=== PATIENT | female | born 1995 | race African-American/Black ===

== ENCOUNTER 2018-03-29 20:36 | Emergency (ER) | payer MEDICAID ==
[~2018-03-29] VITALS: Ht 152.4 cm; Wt 52.0 kg
[2018-03-29 21:03] VITALS: BP 101/51
[2018-03-29] MEDS ORDERED: LORAZEPAM 0.5MG TABLET PO ONE (22:45)
== END 2018-03-30 03:22 | disposition left against medical advice (07) ==
LOC: ER 21:57
DX: F41.9 Anxiety disorder, unspecified (principal); F32.9 Major depressive disorder, single episode, unspecified; F17.200 Nicotine dependence, unspecified, uncomplicated
CPT/HCPCS: 81025; 99284

== ENCOUNTER 2018-06-11 19:21 | Emergency (ER) | payer MEDICAID ==
[~2018-06-11] VITALS: Ht 152.4 cm; Wt 57.0 kg
[2018-06-11 20:54] VITALS: BP 114/71
== END 2018-06-11 23:15 | disposition left against medical advice (07) ==
LOC: ER 19:21
DX: Z53.21 Procedure and treatment not carried out due to patient leaving prior to being seen by health care provider (principal)

== ENCOUNTER 2018-06-21 14:23 | Emergency (ER) | payer MEDICAID ==
[~2018-06-21] VITALS: Ht 152.4 cm; Wt 58.0 kg
[2018-06-21 14:38] VITALS: BP 111/64
== END 2018-06-21 15:48 | disposition left against medical advice (07) ==
LOC: ER 14:23
DX: Z53.21 Procedure and treatment not carried out due to patient leaving prior to being seen by health care provider (principal); F17.200 Nicotine dependence, unspecified, uncomplicated
CPT/HCPCS: 81025

== ENCOUNTER 2018-07-09 11:23 | Emergency (ER) | payer MEDICAID | END 2018-07-09 13:06 | disposition left against medical advice (07) | LOC: ER 11:23 | DX: Z53.21 Procedure and treatment not carried out due to patient leaving prior to being seen by health care provider (principal) ==

== ENCOUNTER 2018-07-13 13:53 | Emergency (ER) | payer MEDICAID ==
[~2018-07-13] VITALS: Ht 152.4 cm; Wt 55.0 kg
[2018-07-13 15:08] LABS: CLARITY URINE CLEAR (CLEAR); COLOR URINE YELLOW (YELLOW); KETONES URINE NEGATIVE (NEGATIVE); LEUKOCYTE ESTERASE URINE NEGATIVE (NEGATIVE); NITRITE URINE NEGATIVE (NEGATIVE); OCCULT BLOOD URINE NEGATIVE (NEGATIVE); PH URINE 7.5 (4.5-8.0); PROTEIN URINE NEGATIVE (NEGATIVE); SPECIFIC GRAVITY URINE 1.012 (1.005-1.030); UROBILINOGEN URINE 0.2 E.U./dL (0.2-1.0)
[2018-07-13 16:11] LABS: CHLORIDE 105 mEq/L (98-107)
[2018-07-13] MEDS ORDERED: HYDROXYZINE 10 MG TABLET PO STA (16:22)
[2018-07-13 17:21] LABS: BASOPHILS % 0.4 % (0.0-2.0); HEMATOCRIT. 40.8 % (36.0-48.0); HEMOGLOBIN. 13.8 g/dL (12.0-16.0); LYMPHOCYTES % 29.7 % (20.0-50.0); MEAN CORPUSCULAR HEMOGLOBIN 34.1 pg (28.0-32.0); MEAN CORPUSCULAR VOLUME 100.8 fL (81.0-99.0); MEAN PLATELET VOLUME 7.3 fl (7.4-10.4); MONOCYTES % 5.8 % (2.0-8.0); NEUTROPHILS % 63.1 % (40.0-76.0); PLATELET 322 x1000/uL (130-400); RED BLOOD CELL COUNT 4.05 mill/uL (4.2-5.4); RED CELL DISTRIBUTION WIDTH 12.7 % (11.6-14.6)
[2018-07-13 17:50] VITALS: BP 104/68
== END 2018-07-13 17:54 | disposition home or self-care (01) ==
LOC: ER 13:53
DX: F41.9 Anxiety disorder, unspecified (principal); R07.89 Other chest pain; R06.09 Other forms of dyspnea; F17.200 Nicotine dependence, unspecified, uncomplicated; M79.672 Pain in left foot; M79.671 Pain in right foot
CPT/HCPCS: 36415; 71045; 81025; 84484; 93005; 99284

== ENCOUNTER 2018-12-13 20:37 | Emergency (ER) | payer MEDICAID ==
[~2018-12-13] VITALS: Ht 152.4 cm; Wt 55.0 kg
[2018-12-13 21:13] VITALS: BP 109/74
== END 2018-12-13 23:52 | disposition left against medical advice (07) ==
LOC: ER 20:37
DX: R07.9 Chest pain, unspecified (principal); Z53.21 Procedure and treatment not carried out due to patient leaving prior to being seen by health care provider
CPT/HCPCS: 93005

== ENCOUNTER 2018-12-21 13:19 | Emergency (ER) | payer MEDICAID ==
[~2018-12-21] VITALS: Ht 160 cm; Wt 60.0 kg
[2018-12-21 14:29] LABS: BASOPHILS % 0.4 % (0.0-2.0); EOSINOPHILS % 1.2 % (0.0-5.0); HEMATOCRIT. 38.9 % (36.0-48.0); HEMOGLOBIN. 13.1 g/dL (12.0-16.0); LYMPHOCYTES % 33.1 % (20.0-50.0); MEAN CORPUSCULAR HEMOGLOBIN 33.9 pg (28.0-32.0); MEAN CORPUSCULAR VOLUME 100.4 fL (81.0-99.0); MEAN PLATELET VOLUME 7.7 fl (7.4-10.4); MONOCYTES % 8.3 % (2.0-8.0); PLATELET 292 x1000/uL (130-400); RED BLOOD CELL COUNT 3.88 mill/uL (4.2-5.4); RED CELL DISTRIBUTION WIDTH 12.4 % (11.6-14.6)
[2018-12-21 14:31] LABS: CHLORIDE 108 mEq/L (98-107)
[2018-12-21] MEDS ORDERED: ACETAMINOPHEN 325MG TABLET PO ONE ×2 (15:00→16:15)
[2018-12-21 15:32] LABS: HCG SCREEN NEGATIVE
[2018-12-21 15:56] VITALS: BP 109/51
[2018-12-21] MEDS ORDERED: ACETAMINOPHEN 325MG TABLET ONE (16:18)
== END 2018-12-21 16:30 | disposition home or self-care (01) ==
LOC: ER 13:45
DX: R07.89 Other chest pain (principal); F41.9 Anxiety disorder, unspecified; R05 Cough; F17.210 Nicotine dependence, cigarettes, uncomplicated; Z87.11 Personal history of peptic ulcer disease; Z88.6 Allergy status to analgesic agent
CPT/HCPCS: 36415; 71045; 84484; 84703; 93005; 99284; 99406

== ENCOUNTER 2020-10-10 01:08 | Emergency (ER) | payer MEDICAID, OTHER ==
[~2020-10-10] VITALS: Ht 152.4 cm; Wt 71.0 kg
[2020-10-10 01:12] VITALS: BP 133/87
== END 2020-10-10 04:12 | disposition left against medical advice (07) ==
LOC: ER 01:08
DX: Z53.21 Procedure and treatment not carried out due to patient leaving prior to being seen by health care provider (principal)
CPT/HCPCS: 93005